=== PATIENT | female | born 1965 | race Caucasian/White ===

== ENCOUNTER → 2017-07-19 | Outpatient (CLI) | payer OTHER ==
[~2017-07-19] MED LIST: ASCO10003 PO; ASPI81TA28 PO; ATEN50TA8 PO; ATOR-24 PO; BUSP15TA70 PO; CITA40TA4 PO; CYAN100020 PO; HYDR-4079 PO; LORA-741 PO; METF-382 PO; MULT-513 PO; PRT/20 PO; SENNTAB23 PO
[2017-07-19 10:02] LABS: BASO % 0.3 %; BASO ABS # 0.03 K/uL (0-0.2); COMPLETE YES; HEMATOCRIT 39.3 % (37-47); IG% 0.5 %; LYMPH % 32.1 %; MEAN CELL VOLUME 89.7 fL (80-100); MEAN CORPUSCULAR HGB CONC 32.3 g/dl (32-36); MEAN PLATELET VOLUME 9.7 fL (7.4-10.4); MONO % 5.9 %; NEUT % 59.2 %; PLATELET COUNT 249 K/uL (130-400); RED BLOOD COUNT 4.38 M/uL (4.2-5.4); WHITE BLOOD COUNT 11.23 K/uL (4.8-10.8)
[2017-07-19 10:32] LABS: BLOOD UREA NITROGEN 17 mg/dl (7-18); BUN/CREATININE RATIO 16.7 (10-20); CALCIUM 9.3 mg/dl (8.5-10.1); CARBON DIOXIDE 29 mmol/L (21-32); CHLORIDE 102 mmol/L (98-107); GLUCOSE 143 mg/dl (70-99); SODIUM 139 mmol/L (136-145)
== END | disposition home or self-care (01) ==
LOC: C.CPL 09:28
PROVIDERS: ATTEND Orthopaedic Surgery
DX: Z01.810 Encounter for preprocedural cardiovascular examination (principal); Z01.812 Encounter for preprocedural laboratory examination; S83.241A Other tear of medial meniscus, current injury, right knee, initial encounter; X58.XXXA Exposure to other specified factors, initial encounter

== ENCOUNTER 2017-07-21 11:06 | Day surgery (SDC) | payer OTHER ==
[2017-07-19 15:34] VITALS: BMI 55.0
[~2017-07-21] VITALS: Ht 167.6 cm; Wt 154.6 kg
--- NOTE | 2017-07-21 06:49 | History and Physical ---
History & Physical Date Jul 21, 2017. Chief Complaint Right medial meniscus tear History of Present Illness The patient is a 51 year old female with complaints of several month history of Right knee pain. Failed conservative treatment. MRI showed medial meniscus tear. Past Medical/Surgical History hypertension, sleep apnea, diabetes, obesity, anxiety Additional History Hepatic Disease: No Endocrine Disorder: Yes Kidney Disease: No Hypertension: Yes Heart Disease: No Bleeding Tendencies: No Infectious Diseases: No Allergies Coded Allergies: No Known Allergies (Unverified , 07/19/17) Home Medications Scheduled Ascorbic Acid (Vitamin C), 1,000 MG PO QAM Aspirin (Aspirin Ec), 81 MG PO QAM Atenolol (Tenormin), 50 MG PO HS Atorvastatin (Lipitor), 40 MG PO HS Buspirone Hcl (Buspar), 15 MG PO TID Citalopram (Citalopram Hydrobromide), 1 TAB PO QAM Cyanocobalamin (Vitamin B12), 1,000 MCG PO QAM Lorazepam (Ativan), 0.5 MG PO BID Metformin Ext Rel (Glucophage Ext Rel), 500 MG PO BID Multivitamins/Minerals (Mvi With Minerals), 1 TAB PO QAM Pantoprazole (Protonix), 20 MG PO QAM Sennosides-Docusate Sodium (Stool Softener), 2 TAB PO HS Scheduled PRN Hydrocodone/Acetaminophen 10MG/325MG ([place] 10MG/325MG), 1 TAB PO Q4H PRN for Pain Physical Examination Skin: warm/dry, no rash Eyes: normal inspection, EOMI, sclerae normal ENT: normal ENT inspection, pharynx normal Head: normocephalic, atraumatic Neck: supple, no adenopathy, trachea midline Respiratory/Chest: lungs clear, normal breath sounds, no respiratory distress Cardiovascular: regular rate, rhythm, no edema, no murmur Abdomen / GI: normal bowel sounds, non tender Back: normal inspection Extremities: normal range of motion, + pertinent finding (medial sided knee pain) Neurologic/Psych: no motor/sensory deficits, alert, normal reflexes, oriented x 3 Diagnosis Right medial meniscus tear Plan of Treatment Right knee arthroscopy
[~2017-07-21 11:06] MED LIST changes: +ACETAMINOPHEN 500 MG TAB PO SCH; +ADD VANTAGE IV SCH; +CEFAZOLIN 3000MG IV PUSH 15 ML IV SCH; +CLINDAMYCIN IV SCH; +DEXTROSE 5% IV SCH; +LACTATED RINGER'S 1000ML 1,000 ML IV SCH; +LACTATED RINGER'S 1000ML IV SCH; +SODIUM CHLORIDE 0.9% 1000ML IV ONE
[2017-07-21 11:32] VITALS: BP 146/79; PULSE 67; TEMP 36.7; O2SAT 96; Ht 167.6 cm; Wt 154.6 kg
[2017-07-21] MEDS ORDERED: FENTANYL CITRATE INJ 50 MCG/1 ML 2 ML VIAL ONE ×3 (12:01→13:37)
[2017-07-21] MEDS ORDERED: MIDAZOLAM HCL 1 MG/ML 2ML VIAL ONE (12:02)
[2017-07-21] MEDS ORDERED: PROPOFOL IV EMULSION 10 MG/ML 20 ML VIAL IV ONE (12:03)
[2017-07-21] MEDS ORDERED: ONDANSETRON INJ 2 MG/ML 2 ML VIAL ONE (12:03)
[2017-07-21] MEDS ORDERED: LIDOCAINE HCL 2% 2 ML VIAL (20MG/ML) ONE (12:03)
[2017-07-21] MEDS ORDERED: DEXAMETHASONE SOD INJ 4 MG/ML VIAL ONE (12:03)
[2017-07-21] MEDS ORDERED: SUCCINYLCHOLINE CHLORIDE 20 MG/ML 10 ML VIAL IV ONE (12:03)
[2017-07-21] MEDS ORDERED: ROCURONIUM BROMIDE 10 MG/ML 5 ML VIAL IV ONE (12:03)
[2017-07-21] MEDS ORDERED: MoRPHine SULFATE 4 MG/ML 1 ML CARP\\VIAL ONE (12:24)
[2017-07-21] MEDS ORDERED: KETOROLAC TROMETHAMINE 30 MG/ML VIAL ONE (12:24)
--- NOTE | 2017-07-21 12:48 | History & Physical Bridge Note ---
H&P Re-Evaluation Bridge Note: I have examined the patient, reviewed the History & Physical and in the interval since the performance of the History & Physical I have noted the following changes of clinical significance: No changes noted
[2017-07-21] MEDS ORDERED: ROPIVACAINE 0.5% 5 MG/ML 30 ML VIAL INFIL ONE (13:10)
[2017-07-21] MEDS ORDERED: GLYCOPYRROLATE INJ 0.2 MG/ML VIAL ONE (13:14)
[2017-07-21] MEDS ORDERED: SODIUM CHLORIDE 0.9% 1000ML 1,000 ML IV SCH (13:25)
--- NOTE | 2017-07-21 13:28 | Discharge Instructions ---
Discharge Instructions Date of Service Jul 21, 2017. Admission Reason for Admission: Right Knee Acute Medial Meniscus Tear Discharge Discharge Diagnosis / Problem: SAME ABOVE Discharge Goals Goal(s): Decrease discomfort, Improve function Activity Recommendations Activity Limitations: as noted below Lifting Limitations: gradually increase as tolerated Exercise/Sports Limitations: until after follow-up appointment . Instructions / Follow-Up Instructions / Follow-Up MEDICATIONS: * Resume previous medications unless instructed otherwise by your surgeon. * Always take pain medication on a full stomach or with food to avoid upset stomach. * Do not drink alcohol or drive while taking narcotics. * Ibuprofen or Tylenol may be taken if narcotic not needed. SPECIAL CARE INSTRUCTIONS: __ None _X_ Keep extremity elevated and iced x 48 hours; apply ice 20-30 minutes 8-10 times/day. May remove at night. __ Crutches __ May discard when able __ Brace/Post-op shoe __ 24 hrs/day __ Remove at night _X_ Dressing __ Maintain until seen in office, may shower with plastic over site _X_ Remove dressings in 24-48 hours and then may shower _X_ Cover incisions with band-aids after showering __ Do not remove steri-strips Call physician if chills or temperature rises above 102 degrees or pain unrelieved by prescribed pain medications. Office [phone] Current Hospital Diet Patient's current hospital diet: Discharge Diet Recommended Diet: Regular Diet Pending Studies Studies pending at discharge: no Medical Emergencies . Who to Call and When: Medical Emergencies: If at any time you feel your situation is an emergency, please call 911 immediately. . Non-Emergent Contact Non-Emergency issues call your: Primary Care Provider . "Provider Documentation" section prepared by Farooq Rios. . VTE Core Measure Inpt VTE Proph given/why not?: Treatment not indicated
[2017-07-21] MEDS ORDERED: OXYCODONE/ACETAMINOPHEN 5-325 TAB PO PRN (13:30)
[2017-07-21] MEDS ORDERED: ONDANSETRON INJ 2 MG/ML 2 ML VIAL IV PRN ×2 (13:30→13:45)
[2017-07-21] MEDS ORDERED: PROMETHAZINE HCL INJ 6.25 MG in SODIUM CHLORIDE 0.9% 50ML 50 ML IV PRN (13:45)
[2017-07-21] MEDS ORDERED: FENTANYL CITRATE INJ 50 MCG/1 ML 2 ML VIAL IV PRN (13:45)
[2017-07-21] MEDS ORDERED: ATROPINE SULFATE 0.1 MG/ML 5ML SYR IV PRN (13:45)
[2017-07-21] MEDS ORDERED: EpHEDrine SULFATE INJ 50 MG/ML AMP IV PRN (13:45)
--- NOTE | 2017-07-21 14:19 | [facility] Post Operative Brief Note ---
Immediate Operative Summary Operative Date Jul 21, 2017. Pre-Operative Diagnosis Right Medial Meniscus Tear Post-Operative Diagnosis Right Medial Meniscus Tear Procedure(s) Performed Right Knee Arthroscopy Partial Medial Meniscectomy and Chondroplasty Surgeon Dr Taylor [employer] Surgeon(s) Farooq Rios PA-C Estimated Blood Loss 5cc Findings as above Specimens None As per surgeon Complication(s) None Disposition Recovery Room / PACU
--- NOTE | 2017-07-21 14:22 | OPERATIVE REPORT ---
DATE OF OPERATION: 07/21/2017 PREOPERATIVE DIAGNOSIS: Medial meniscal tear and chondromalacia of the right knee. POSTOPERATIVE DIAGNOSIS: Same. PROCEDURE: Right knee diagnostic arthroscopy with chondroplasty and partial medial meniscectomy. SURGEON: Dr. Farooq Taylor. PRACTICE ADMINISTRATOR: Farooq Rios PA-C, whose assistance was necessary for positioning the leg and helping with instrumentation. ANESTHESIA: General. COMPLICATIONS: None. CONDITION: Stable to PACU. INDICATIONS: Jennifer is a pleasant 51-year-old female who presented to my office with a sudden increase of right knee pain. X-rays did not show much by MRI showed a complex medial meniscus tear with some chondromalacia. After failing conservative treatment, she elected to undergo arthroscopy. OPERATION AND FINDINGS: On 07/21/2017 she arrived at [facility] for the above procedure. She was seen in the preoperative holding area and the operative extremity was identified and signed. She was given a preoperative antibiotic and taken back to the operating room, laid on the table in supine position and put under general anesthesia. The right knee was then prepped and draped in sterile fashion. Time-out was done and the patient and operative extremity was properly identified. A scope was placed in a lateral parapatellar portal. Diagnostic arthroscopy showed no loose bodies in the suprapatellar pouch. There was some grade 2 chondromalacia on the undersurface of the patella. The scope was brought into the medial compartment and there was a displaced medial meniscus tear that was incarcerated within the joint. A medial parapatellar portal was made under direct visualization. A shaver was used to remove the unstable portions of the meniscus. There was a complex tear of the body and posterior aspect of the meniscus. Significant time was spent ensuring that appropriate meniscectomy was done. There was also some grade 3 and 4 chondral changes off the distal medial femoral condyle. A shaver was used to remove any unstable pieces of cartilage and complete a chondroplasty. The scope was then brought into the trochlea. ACL and PCL were intact. The scope was brought into the lateral compartment and there was no meniscus or cartilage damage laterally. The scope was then placed in the medial parapatellar portal. Repeat diagnostic arthroscopy showed no additional pathology. The knee was brought out into extension. A shaver was used to do a limited chondroplasty of the undersurface of the patella. The knee was then irrigated and arthroscopic instruments were removed. Portal sites were closed with 3-0 nylon. The knee was then injected with 30 mL of Naropin, morphine and Toradol. She was then placed in a soft compressive dressing, extubated, transferred to a [facility] and taken to the postanesthesia care unit in stable condition. She tolerated the procedure well. I attest to the content of the Intraoperative Record and any orders documented therein. Any exception s are noted below.
[2017-07-21 14:28] VITALS: BP 144/56; PULSE 80; TEMP 36.9; O2SAT 96
--- NOTE | 2017-07-21 14:42 | Anesthesiology Progress Note ---
Anesthesia Post Op Note Date & Time Jul 21, 2017 at 14:42 Vital Signs Pain Intensity: 4 Vital Signs Past 12 Hours Date Time Temp Pulse Resp B/P (MAP) Pulse Ox O2 Delivery O2 Flow Rate FiO2 07/21/17 14:20 36.6 82 16 121/71 93 Nasal Cannula 2 07/21/17 14:10 36.6 89 16 148/74 93 Nasal Cannula 2 07/21/17 14:00 87 16 144/76 94 Nasal Cannula 07/21/17 13:50 90 16 121/76 96 Room Air 07/21/17 13:40 92 16 138/80 97 Oxymask 10 07/21/17 13:30 95 16 146/78 95 Oxymask 10 07/21/17 13:24 36 99 16 152/80 94 Oxymask 8 07/21/17 11:32 36.7 67 18 146/79 (101) 96 Room Air Notes Mental Status: alert / awake / arousable, participated in evaluation Pt Amnestic to Procedure: Yes Nausea / Vomiting: adequately controlled Pain: adequately controlled Airway Patency, RR, SpO2: stable & adequate BP & HR: stable & adequate Hydration State: stable & adequate Anesthetic Complications: no major complications apparent
[2017-07-21 15:00] VITALS: BP 133/70; PULSE 85; O2SAT 96
[2017-07-21 15:20] VITALS: BP 148/73; PULSE 68; TEMP 36.7; O2SAT 96
== END 2017-07-21 15:25 | disposition home or self-care (01) ==
LOC: C.ACU 11:06
PROVIDERS: ATTEND Orthopaedic Surgery
DX: S83.231A Complex tear of medial meniscus, current injury, right knee, initial encounter (principal); X58.XXXA Exposure to other specified factors, initial encounter; G47.33 Obstructive sleep apnea (adult) (pediatric); M19.90 Unspecified osteoarthritis, unspecified site; I10 Essential (primary) hypertension; E11.9 Type 2 diabetes mellitus without complications; Z98.84 Bariatric surgery status; Z79.899 Other long term (current) drug therapy; Z79.82 Long term (current) use of aspirin; E66.9 Obesity, unspecified; Z68.43 Body mass index [BMI] 50.0-59.9, adult